=== PATIENT | male | born 1950 | race Caucasian/White ===

== ENCOUNTER → 2016-11-23 | Outpatient (CLI) | payer OTHER ==
[~2016-11-23] MED LIST: ASPIRIN CHEWABL81 MG PO; CELEBREX200 MG PO; ELIQUIS5 MG PO; FISH OIL 1,2001 EACH PO; LEVAQUIN500 MG PO; LOSARTAN-HCTZ1 EAC1 PO; METOPROLOL TART25 MG PO; NIFEDIPINE ER60 M1 PO; NORCO 5-325 TA1 EACH PO; SIMVASTATIN40 MG PO; TESSALON PERLE100 MG PO
== END ==
LOC: HEART 5 11:26
DX: I47.1 Supraventricular tachycardia (principal); R00.2 Palpitations; R00.1 Bradycardia, unspecified

== ENCOUNTER → 2017-03-23 | Outpatient (CLI) | payer OTHER | LOC: HEART 5 08:37 | DX: R06.02 Shortness of breath (principal) | CPT/HCPCS: 94010 ==

== ENCOUNTER → 2021-03-17 | Outpatient (CLI) | payer OTHER | LOC: HEART 5 03-04 11:00 | DX: I49.5 Sick sinus syndrome (principal); R60.9 Edema, unspecified; I08.2 Rheumatic disorders of both aortic and tricuspid valves; I11.9 Hypertensive heart disease without heart failure | CPT/HCPCS: 93306 ==